=== PATIENT | male | born 1985 | race Caucasian/White ===

== ENCOUNTER 2016-11-03 13:37 | Emergency (ER) | payer OTHER ==
[~2016-11-03] VITALS: Ht 175.2 cm; Wt 68.9 kg
[~2016-11-03 13:37] MED LIST: ANUSOL-HC25 MG RC; BENADRYL50 MG PO; BENTYL20 MG PO; CIPRO500 MG PO; DARVOCET N 1001 TAB PO; DAYPRO600 M1 PO; EXCEDRIN MIGRAI1 TA1 PO; FLAGYL500 MG PO; HYDROCODONE BIT1 T11 PO; KENALOG0.1% TP; LOMOTIL 0.025 M1 TA1 PO; MEDROL DOSEPAK4 MG PO; MIRALAX POWDER255 GM PO; MOTRIN800 MG PO; NKHM; PHENERGAN25 M1 PO; PHENERGAN25 MG RC; PREDNISONE50 MG PO; PREVACID SOLUTA30 MG PO; PROTONIX TR40 MG PO; REMERON30 MG PO; ROBAXIN750 MG PO; XANAX0.25 MG PO; ZANTAC150 MG PO; ZITHROMAX Z PA250 MG PO; ZOFRAN4 MG PO; ZOFRAN8 MG PO
[2016-11-03 13:52] VITALS: BP 122/68
[2016-11-03] MEDS ORDERED: MEDROL DOSEPAK4 MG PO (14:08)
[2016-11-03] MEDS ORDERED: NAPROSYN500 MG PO (14:08)
[2016-11-03] MEDS ORDERED: CYCLOBENZAPRINE10 MG PO (14:08)
== END 2016-11-03 14:28 | disposition home or self-care (01) ==
LOC: ED 13:37
DX: S39.012A Strain of muscle, fascia and tendon of lower back, initial encounter (principal); F17.200 Nicotine dependence, unspecified, uncomplicated; Z88.2 Allergy status to sulfonamides; Z88.1 Allergy status to other antibiotic agents; Z88.6 Allergy status to analgesic agent; Z88.8 Allergy status to other drugs, medicaments and biological substances; X58.XXXA Exposure to other specified factors, initial encounter; Y93.89 Activity, other specified; Y92.89 Other specified places as the place of occurrence of the external cause; Y99.9 Unspecified external cause status

== ENCOUNTER 2017-01-29 12:55 | Emergency (ER) | payer OTHER ==
[~2017-01-29] VITALS: Ht 175.2 cm; Wt 65.8 kg
[~2017-01-29 12:55] MED LIST changes: +CYCLOBENZAPRINE10 MG PO; +NAPROSYN500 MG PO
[2017-01-29 13:55] VITALS: BP 136/82
== END 2017-01-29 15:17 | disposition left against medical advice (07) ==
LOC: ED 12:55
DX: M25.422 Effusion, left elbow (principal); R60.0 Localized edema; F17.200 Nicotine dependence, unspecified, uncomplicated; Z88.2 Allergy status to sulfonamides; Z88.6 Allergy status to analgesic agent; Z88.1 Allergy status to other antibiotic agents; Z88.8 Allergy status to other drugs, medicaments and biological substances

== ENCOUNTER 2017-09-10 10:27 | Emergency (ER) | payer SELFPAY ==
[~2017-09-10] VITALS: Ht 175.2 cm; Wt 68.9 kg
[2017-09-10 10:42] VITALS: BP 116/80
[2017-09-10] MEDS ORDERED: CYCLOBENZAPRINE10 MG PO (10:48)
== END 2017-09-10 12:56 | disposition home or self-care (01) ==
LOC: ED 10:27
DX: S39.012A Strain of muscle, fascia and tendon of lower back, initial encounter (principal); F17.200 Nicotine dependence, unspecified, uncomplicated; Z88.2 Allergy status to sulfonamides; Z88.6 Allergy status to analgesic agent; Z88.1 Allergy status to other antibiotic agents; Z88.8 Allergy status to other drugs, medicaments and biological substances

== ENCOUNTER 2017-11-02 02:40 | Emergency (ER) | payer SELFPAY ==
[~2017-11-02] VITALS: Ht 175.2 cm; Wt 68.9 kg
[2017-11-02 02:40] VITALS: BP 110/81
[2017-11-02] MEDS ORDERED: CLINDAMYCIN HC300 MG PO (03:37)
[2017-11-02] MEDS ORDERED: MAPAP325 MG PO (03:47)
== END 2017-11-02 04:16 | disposition home or self-care (01) ==
LOC: ED 02:40
DX: K04.01 Reversible pulpitis (principal); K02.9 Dental caries, unspecified; F17.200 Nicotine dependence, unspecified, uncomplicated; Z88.2 Allergy status to sulfonamides; Z88.1 Allergy status to other antibiotic agents; Z88.6 Allergy status to analgesic agent; Z88.8 Allergy status to other drugs, medicaments and biological substances

== ENCOUNTER 2017-12-04 15:54 | Emergency (ER) | payer MEDICAID ==
[~2017-12-04] VITALS: Wt 68.9 kg
[~2017-12-04 15:54] MED LIST changes: +CLINDAMYCIN HC300 MG PO; +MAPAP325 MG PO
[2017-12-04 15:57] VITALS: BP 134/85
[2017-12-04] MEDS ORDERED: NORCO 10-325 T1 EACH PO (17:41)
== END 2017-12-04 17:46 | disposition home or self-care (01) ==
LOC: ED 15:54
DX: T22.111A Burn of first degree of right forearm, initial encounter (principal); T23.171A Burn of first degree of right wrist, initial encounter; T22.121A Burn of first degree of right elbow, initial encounter; T65.891A Toxic effect of other specified substances, accidental (unintentional), initial encounter; F17.200 Nicotine dependence, unspecified, uncomplicated; Z88.2 Allergy status to sulfonamides; Z88.6 Allergy status to analgesic agent; Z88.1 Allergy status to other antibiotic agents; Y92.69 Other specified industrial and construction area as the place of occurrence of the external cause

== ENCOUNTER 2018-01-04 10:33 | Emergency (ER) | payer SELFPAY ==
[~2018-01-04] VITALS: Ht 175.2 cm; Wt 68.9 kg
[~2018-01-04 10:33] MED LIST changes: +NORCO 10-325 T1 EACH PO
[2018-01-04 10:39] VITALS: BP 132/83
[2018-01-04] MEDS ORDERED: NORCO 10-325 T1 EACH PO (12:40)
[2018-01-04] MEDS ORDERED: AMOXICILLIN500 M2 PO (12:40)
== END 2018-01-04 12:55 | disposition home or self-care (01) ==
LOC: ED 10:33
DX: K04.7 Periapical abscess without sinus (principal); R51 Headache; H92.02 Otalgia, left ear; Z88.2 Allergy status to sulfonamides; Z88.6 Allergy status to analgesic agent; Z88.1 Allergy status to other antibiotic agents; Z88.8 Allergy status to other drugs, medicaments and biological substances

== ENCOUNTER 2018-02-13 21:59 | Emergency (ER) | payer SELFPAY ==
[~2018-02-13] VITALS: Ht 175.2 cm; Wt 68.9 kg
[~2018-02-13 21:59] MED LIST changes: +AMOXICILLIN500 M2 PO
[2018-02-13 22:01] VITALS: BP 107/71
[2018-02-13] MEDS ORDERED: CLINDAMYCIN150 MG PO (22:48)
[2018-02-13] MEDS ORDERED: Motrin,Rufen800 MG PO (22:48)
== END 2018-02-13 23:35 | disposition home or self-care (01) ==
LOC: ED 21:59
DX: K04.01 Reversible pulpitis (principal); K02.9 Dental caries, unspecified; Z88.1 Allergy status to other antibiotic agents; Z88.2 Allergy status to sulfonamides; Z88.6 Allergy status to analgesic agent; Z88.8 Allergy status to other drugs, medicaments and biological substances

== ENCOUNTER 2020-07-26 06:37 | Emergency (ER) | payer SELFPAY ==
[~2020-07-26] VITALS: Ht 175.2 cm; Wt 62.1 kg
[~2020-07-26 06:37] MED LIST changes: +AVPAK AZITHROM250 MG PO; +CLINDAMYCIN150 MG PO; +IBU800 MG PO; +Motrin,Rufen800 MG PO; +PENICILLIN VK500 MG PO
[2020-07-26 06:38] VITALS: BP 115/81
[2020-07-26] MEDS ORDERED: KEFLEX500 M1 PO (09:44)
== END 2020-07-26 09:46 | disposition home or self-care (01) ==
LOC: ED 06:37
DX: S41.112A Laceration without foreign body of left upper arm, initial encounter (principal); W45.8XXA Other foreign body or object entering through skin, initial encounter; Y93.89 Activity, other specified; Y92.89 Other specified places as the place of occurrence of the external cause; Y99.8 Other external cause status